=== PATIENT | female | born 1950 | race Caucasian/White ===

== ENCOUNTER 2019-12-10 17:21 | Inpatient (IN) | payer MEDICARE, BC ==
[~2019-12-10] VITALS: Ht 162.6 cm; Wt 68.0 kg
--- NOTE | 2019-12-10 17:40 | NUR ---
BIB PD 69 YEAR OLD FEMALE, PATIENT WAS AT PMD OFFICE STATING "IM BETTER OFF ." PLACED ON 5150. +SI/-HI DENIES ANY PLAN. ALERT AND ORIENTED X3 BREATHING EVEN AND UNLABORED WITH NO DISTRESS NOTED. SKIN INTACT. ALL BELONGINGS TAKEN AND STOWED AWAY INTO LOCKER. SECURITY CHECK AND SEARCH WAS DONE. WAITING TO BE SEEN BY .
[2019-12-10] MEDS ORDERED: SERT50TA12 PO (17:57)
[2019-12-10] MEDS ORDERED: GABA-534 PO (17:57)
[2019-12-10 18:09] LABS: BASOPHILS # (AUTO) 0.1 /CMM (0.0-0.2); BASOPHILS % (AUTO) 1.2 % (0.0-2.0); EOSINOPHILS % (AUTO) 0.7 % (0.0-6.0); HEMATOCRIT 40 % (33-45); HEMOGLOBIN 13.8 g/dL (11.5-14.8); LYMPHOCYTES # (AUTO) 2.7 /CMM (0.8-4.8); LYMPHOCYTES % (AUTO) 27.9 % (20.0-44.0); MEAN CORPUSCULAR HGB CONC 34 g/dl (31.0-36.0); MEAN CORPUSCULAR VOLUME 100 fL (82-100); MONOCYTES # (AUTO) 0.6 /CMM (0.1-1.30); MONOCYTES % (AUTO) 6.1 % (2.0-12.0); NEUTROPHILS # (AUTO) 6.3 /CMM (1.8-8.9); NEUTROPHILS % (AUTO) 64.1 % (43.0-81.0); PLATELET COUNT (AUTO) 338 /CMM (150-450); RED BLOOD CELL COUNT(AUTO) 4.03 MIL/uL (4.0-5.2); WHITE BLOOD COUNT (AUTO) 9.8 K/uL (4.3-11.0)
[2019-12-10 18:18] LABS: CALCIUM, SERUM 8.9 mg/dL (8.5-10.1); CARBON DIOXIDE 26 mmol/L (21-32); CHLORIDE 94 mmol/L (98-107); CREATININE 0.7 mg/dL (0.6-1.3); GLUCOSE 105 mg/dL (74-106); SODIUM SERUM 129 mmol/L (136-145); UREA NITROGEN, BLOOD 22 mg/dL (7-18)
[2019-12-10] MEDS ORDERED: LORAZEPAM 1 MG TABLET ONE (18:24)
[2019-12-10] MEDS ORDERED: LORAZEPAM 1 MG TABLET PO ONE (18:30)
[2019-12-10 18:32] LABS: ALANINE AMINOTRANSFERASE 148 U/L (12-78); ALBUMIN 3.4 g/dL (3.4-5.0); ALCOHOL, BLOOD < 3 mg/dL (0-0); ALKALINE PHOSPHATASE 112 U/L (46-116); ASPARTATE AMINOTRANSFERASE 88 U/L (15-37); BILIRUBIN,DIRECT 0.2 mg/dL (0.0-0.2); BILIRUBIN,TOTAL 0.4 mg/dL (0.2-1.0); TOTAL PROTEIN, SERUM 6.7 g/dL (6.4-8.2)
[2019-12-10 18:33] LABS: ACETAMINOPHEN < 2 ug/ml (10-30); SALICYLATE < 2.8 mg/dL (2.8-20.0)
--- NOTE | 2019-12-10 18:51 | NUR ---
URINE COLLECTED SENT TO LAB
--- NOTE | 2019-12-10 18:51 | NUR ---
REPORT GIVEN TO KARLI IN [facility]
[2019-12-10 18:55] LABS: APPEARANCE,URINE Slightly Cloudy (CLEAR); BILIRUBIN,URINE Negative (NEGATIVE); BLOOD, URINE Negative Ery/uL (NEGATIVE); COLOR,URINE Yellow (YELLOW); KETONES,URINE Trace (NEGATIVE); LEUKOCYTE ESTERASE ,URINE Small (NEGATIVE); NITRITE, URINE Negative (NEGATIVE); PH,URINE 7.5 (5.0-8.0); PROTEIN,URINE Negative (NEGATIVE); UGLUCOSE Negative (NEGATIVE)
[2019-12-10 19:26] LABS: BACTERIA,URINE Few /HPF (None Seen); RBC,URINE 0-2 /HPF (0-2); SQUAMOUS EPITHELIAL CELL,UR Few /HPF (None Seen)
[2019-12-10 20:00] VITALS: BP 118/73
--- NOTE | 2019-12-10 20:00 | NUR ---
GPS ADMISSION NOTES: ADMITTED THIS 69-Y/O, FEMALE, FROM [facility], ARRIVED ON THIS UNIT AT 1999 VIA WHEELCHAIR ACCOMPANIED WITH STAFF AND SPOUSE. PATIENT ADMITTED ON 5150 HOLD FOR DTS. PER HOLD PT. ADMITTED FOR SUICIDAL IDEATION. PT. HAS SEVERAL STRESSORS, MENTAL PROBLEMS, INCREASING DRINKING PROBLEM, RECURRENT AND INCREASING ANXIETY AND DEPRESSION. PT. REPORTED THAT "SHE IS GETTING WORSE' AND KEPT REPEATING THAT "SHE WOULD BE BETTER OFF ." UPON FACE TO FACE ASSESSMENT, PATIENT IS A&O X3 FEELING DEPRESSED, ANXIOUS, COOPERATIVE WITH CARE. IN NO APPARENT DISTRESS NOTED. DENIES SI/HI/AVH AT THIS TIME. SKIN ASSESSMENT DONE. PT'S RIGHTS HANDBOOK & PT. GUIDELINES BOOK GIVEN & DISCUSSED TO THE PATIENT. PT BELONGINGS WERE INVENTORIED & CHECKED FOR CONTRABAND. PT. IS UNDER THE PSYCHIATRIC CARE OF DR. LOUIS, ORDERS OBTAINED & UNDER THE MEDICAL CARE OF ESTEFANY RITTER. MED RECON DONE. PATIENT EDUCATED TO THE USE OF CALL SKAGGS. BED ALARM ON. ENVIRONMENTAL SAFETY CHECK DONE. BED LOCKED & IN LOW POSITION. WILL CONTINUE TO MONITOR Q15 MINUTES FOR SAFETY & BEHAVIOR.
--- NOTE | 2019-12-10 20:20 | NUR ---
PT TRANSFFERED UPSTAIR AND STABLE
[2019-12-10] MEDS ORDERED: MAGNESIUM HYDROXIDE 30 ML UDC PO PRN (21:00)
[2019-12-10] MEDS ORDERED: ACETAMINOPHEN 325 MG TABLET PO PRN (21:00)
[2019-12-10] MEDS ORDERED: MAG HYDROX/AL HYDROX/SIMETH 30 ML UDC PO PRN (21:00)
[2019-12-10] MEDS: LORAZEPAM 0.5 MG TABLET PO PRN (21:27)
--- NOTE | 2019-12-10 21:27 | NUR ---
GPS RN NOTE: ANXIETY PT. C/O OF FEELING ANXIOUS AND REQUESTED ANTI-ANXIETY PILL. ADMINISTERED ATIVAN 0.5 MG PO ORDERED. WILL CONTINUE TO MONITOR FOR PT. SAFETY.
[2019-12-10] MEDS ORDERED: BLOOD SUGAR DIAGNOSTIC 1 EACH STRIP IN ONE (22:00)
[2019-12-10] MEDS: TEMAZEPAM 7.5 MG CAPSULE PO PRN (23:08)
--- NOTE | 2019-12-10 23:08 | NUR ---
GPS RN NOTES: INSOMNIA PT. C/O INABILITY TO SLEEP AND REQUESTED FOR SLEEPING PILL. ADMINISTERED RESTORIL 7.5 MG PO ORDERED WILL CONTINUE TO MONITOR FOR PT'S SAFETY.
--- NOTE | 2019-12-10 23:11 | NUR ---
GPS RN NOTE, PATIENT HAS A COMPLAINT OF CHRONIC RIGHT KNEE PAIN AT A 5 OUT 10 ON THE PAIN SCALE AND REPORTS SHE TAKES IBUPROFEN FOR THIS PAIN. INFORMED ONIEL RITTER DNP WHO IS ROUNDING ON FLOOR. ONIEL RITTER DNP ORDERED TO GIVE IBUPROFEN 400 MG PO Q6HR PRN, ALL ORDERS NOTED AND CARRIED OUT. WILL CONTINUE TO MONITOR THIS PATIENT WITH THE HELP OF STAFF.
[2019-12-11] MEDS: LORAZEPAM 0.5 MG TABLET PO PRN (08:19)
[2019-12-11] MEDS: NITROFURANTOIN/NITROFURAN MAC 100 MG CAPSULE PO SCH ×2 (08:21→21:08)
[2019-12-11] MEDS: GABAPENTIN 300 MG CAPSULE PO SCH ×3 (08:21→16:40)
--- NOTE | 2019-12-11 08:22 | NUR ---
GPS/RN-NOTES PATIENT STATED" I'M VERY ANXIOUS CAN YOU GIVE ME MEDICATION TO RELAX ME". ATIVAN 0.5MG P.O GIVEN PRN ORDER. WILL CONT. MONITORING FOR SAFETY AND BEHAVIOR.
[2019-12-11 09:11] VITALS: BP 162/80
--- NOTE | 2019-12-11 09:20 | NUR ---
GPS/RN-NOTES PATIENT LAYING IN BED AWAKE,ALERT ,CALM NO ACUTE DISTRESS NOTED.
--- NOTE | 2019-12-11 10:39 | NUR ---
Family Contact: ELAYNE called the pts , Mir ([phone]), and informed him that the pt is in the hospital and explained the situation of the hold. SW then proceeded to inform him of the average length of stay for the pts in this geriatric psych unit. SW discussed the pts initial treatment plan of participating in groups and taking her medications and discussed the initial discharge plan of the pt returning to her home.
--- NOTE | 2019-12-11 11:59 | NUR ---
Initial Discharge Plan: Pt currently resides in her home with her located at [address] [place] [address]; ([phone]). Per pt she will return to her home. SW will work with the pt and the MD regarding appropriate discharge planning. SW will form a safe and proper discharge.
[2019-12-11 16:11] VITALS: BP 125/70
[2019-12-11 20:00] VITALS: BP 130/69
[2019-12-11] MEDS: SERTRALINE HCL 50 MG TABLET PO SCH (21:09)
[2019-12-11] MEDS: TEMAZEPAM 7.5 MG CAPSULE PO PRN (23:41)
--- NOTE | 2019-12-11 23:42 | NUR ---
GPS RN NOTE: INSOMNIA PT. C/O INABILITY TO SLEEP AND REQUESTED FOR SLEEPING PILL. ADMINISTERED RESTORIL 7.5 MG PO ORDERED. WILL CONTINUE TO MONITOR FOR PT'S SAFETY.
[2019-12-12] MEDS: LORAZEPAM 0.5 MG TABLET PO PRN ×3 (04:01→16:03)
--- NOTE | 2019-12-12 04:03 | NUR ---
GPS RN NOTE: ANXIETY PT. C/O FEELING ANXIOUS AND REQUESTED FOR ATIVAN. PRN ATIVAN 0.5MG PO GIVEN. WILL CONTINUE TO MONITOR FOR PT'S SAFETY.
[2019-12-12 07:18] LABS: BASOPHILS % (AUTO) 0.5 % (0.0-2.0); EOSINOPHILS % (AUTO) 1.5 % (0.0-6.0); HEMATOCRIT 41 % (33-45); HEMOGLOBIN 13.5 g/dL (11.5-14.8); LYMPHOCYTES # (AUTO) 1.7 /CMM (0.8-4.8); LYMPHOCYTES % (AUTO) 24.9 % (20.0-44.0); MEAN CORPUSCULAR HGB CONC 33 g/dl (31.0-36.0); MEAN CORPUSCULAR VOLUME 101 fL (82-100); MONOCYTES # (AUTO) 0.5 /CMM (0.1-1.30); NEUTROPHILS # (AUTO) 4.4 /CMM (1.8-8.9); NEUTROPHILS % (AUTO) 65.1 % (43.0-81.0); PLATELET COUNT (AUTO) 288 /CMM (150-450); RED BLOOD CELL COUNT(AUTO) 4.03 MIL/uL (4.0-5.2); WHITE BLOOD COUNT (AUTO) 6.7 K/uL (4.3-11.0)
[2019-12-12 07:31] LABS: CREATININE 0.6 mg/dL (0.6-1.3); POTASSIUM 3.6 mmol/L (3.5-5.1)
[2019-12-12 08:00] VITALS: BP 144/83
[2019-12-12] MEDS: NITROFURANTOIN/NITROFURAN MAC 100 MG CAPSULE PO SCH ×2 (08:26→21:02)
[2019-12-12] MEDS: GABAPENTIN 300 MG CAPSULE PO SCH ×3 (08:26→16:03)
--- NOTE | 2019-12-12 10:04 | NUR ---
GPS RN NOTE: ANXIETY PT. C/O FEELING ANXIOUS AND REQUESTED FOR ATIVAN. PRN ATIVAN 0.5MG PO GIVEN. WILL CONTINUE TO MONITOR FOR PT'S SAFETY.
[2019-12-12 16:00] VITALS: BP 148/82
--- NOTE | 2019-12-12 16:19 | NUR ---
GPS RN NOTE: ANXIETY PT. C/O FEELING ANXIOUS AND REQUESTED FOR ATIVAN. PRN ATIVAN 0.5MG PO GIVEN. WILL CONTINUE TO MONITOR FOR PT'S SAFETY.
--- NOTE | 2019-12-12 19:30 | NUR ---
GPS RN NOTE, RECEIVED PATIENT AWAKE AND IN BED, NO S/S OR COMPLAINTS OF PAIN AT THIS TIME. PATIENT IS DISPLAYING NO S/S OF APPARENT DISTRESS AT THIS TIME. PATIENT BREATHING IS UNLABORED WITH EQUAL RISE AND FALL OF THE CHEST. PATIENT IS ALERT AND ORIENTED X 3 ON ROOM AIR WITH A SPO2 97%. PATIENT IS COMPLIANT WITH MEDICATIONS, DEPRESSED, ANXIOUS AT TIMES, AND COOPERATIVE. PATIENT DENIES SUICIDAL AND HOMICIDAL IDEATIONS AT THIS TIME. PATIENT ASSISTED WITH TURNING AND REPOSITIONING Q2HR AND PRN FOR COMFORT AND CIRCULATION. PATIENT HAS NO NEEDS AT THIS TIME. PATIENT EDUCATED ON THE USE OF THE CALL SKAGGS. PATIENT BED SIDE RAILS UP X 2 FOR SAFETY. PATIENT BED IS LOCKED, LOW, WITH BED ALARM ON. WILL CONTINUE TO MONITOR THIS PATIENT Q15 MINUTES WITH THE HELP OF STAFF TO MAINTAIN SAFETY.
[2019-12-12 20:58] VITALS: BP 125/66
[2019-12-12] MEDS: SERTRALINE HCL 50 MG TABLET PO SCH (21:02)
[2019-12-12] MEDS: TEMAZEPAM 7.5 MG CAPSULE PO PRN (21:54)
--- NOTE | 2019-12-12 21:54 | NUR ---
GPS RN NOTE: INSOMNIA PT. C/O OF INSOMNIA AND REQUESTED FOR SLEEPING PILL. ADMINISTERED RESTORIL 7.5 MG PO PRN. WILL CONTINUE TO MONITOR FOR SAFETY.
[2019-12-13] MEDS: LORAZEPAM 0.5 MG TABLET PO PRN ×2 (07:54→15:42)
[2019-12-13 08:00] VITALS: BP 144/76
[2019-12-13] MEDS: NITROFURANTOIN/NITROFURAN MAC 100 MG CAPSULE PO SCH ×2 (08:29→21:01)
[2019-12-13] MEDS: GABAPENTIN 300 MG CAPSULE PO SCH ×3 (08:29→16:30)
[2019-12-13 16:00] VITALS: BP 134/80
--- NOTE | 2019-12-13 19:40 | NUR ---
GPS RN OPENING NOTES RECEIVED PATIENT FROM MORNING SHIFT ALERT AND ORIENTED X 3. VERBALLY RESPONSIVE AND ABLE TO FOLLOW DIRECTIONS. VERBALIZED THAT SHE'S FEELING A LOT BETTER AFTER TAKING ATIVAN. BREATHING REGULAR AND UNLABORED ON ROOM AIR. NO COMPLAINTS OF PAIN/DISCOMFORT REPORTED AT THIS TIME. BED LOW AND LOCKED ON LOW FOWLERS POSITION. WILL CONTINUE TO MONITOR FOR SAFETY AND BEHAVIOR.
[2019-12-13 20:14] VITALS: BP 123/69
[2019-12-13] MEDS: SERTRALINE HCL 50 MG TABLET PO SCH (21:01)
[2019-12-13] MEDS: SIMVASTATIN 10 MG TABLET PO SCH (21:18)
[2019-12-13 22:00] VITALS: BP 123/69
[2019-12-13] MEDS: TEMAZEPAM 7.5 MG CAPSULE PO PRN (22:29)
--- NOTE | 2019-12-13 22:30 | NUR ---
GPS RN NOTES COMPLAINED OF INABILITY TO STAY ASLEEP, RESTORIL 7.5MG GIVEN BY MOUTH. NON-PHARMACOLOGICAL INTERVENTIONS PROVIDED. WILL CONTINUE TO MONITOR.
[2019-12-14] MEDS: LORAZEPAM 0.5 MG TABLET PO PRN ×2 (06:40→13:40)
[2019-12-14 08:00] VITALS: BP 142/73
[2019-12-14] MEDS: NITROFURANTOIN/NITROFURAN MAC 100 MG CAPSULE PO SCH ×2 (08:10→21:03)
[2019-12-14] MEDS: GABAPENTIN 300 MG CAPSULE PO SCH ×3 (08:10→17:34)
--- NOTE | 2019-12-14 09:00 | NUR ---
RN NOTE- PT ALERT ORIENTED TO PERSON PLACE. CONFUSED CALM DIRECTABLE. PT PO INTAKE GOOD, INTERACTIVE, MED COMPLIANT. DENYING SI HI AH VH
--- NOTE | 2019-12-14 12:30 | NUR ---
Substance Abuse Intervention: SW conducted a substance abuse intervention with the pt due to her alcohol abuse.
--- NOTE | 2019-12-14 13:40 | NUR ---
RN NOTE-ANXIETY/ PT C/O ANXIOUSNESS. ATIVAN 0.5 MG GIVEN
--- NOTE | 2019-12-14 14:55 | NUR ---
RN NOTE- RX EFFECTIVE. PT CALM
[2019-12-14 16:00] VITALS: BP 127/63
--- NOTE | 2019-12-14 16:11 | NUR ---
Group Note: SW encouraged pt to attend group therapy on 12/14/19 at 2pm discussing discharge planning. Pt stated that she preferred to stay in her room because she did not want to discuss her discharge plan with other patients. SW stated that the plan is for her to return to her home with her in a couple of days.
[2019-12-14 20:00] VITALS: BP 143/79
[2019-12-14 20:07] VITALS: BP 143/79
[2019-12-14] MEDS: SERTRALINE HCL 50 MG TABLET PO SCH (21:03)
[2019-12-14] MEDS: SIMVASTATIN 10 MG TABLET PO SCH (21:03)
[2019-12-14] MEDS: TEMAZEPAM 7.5 MG CAPSULE PO PRN (22:07)
[2019-12-15] MEDS: LORAZEPAM 0.5 MG TABLET PO PRN ×2 (07:30→14:16)
--- NOTE | 2019-12-15 07:30 | NUR ---
RN NOTE- ANXIETY/ PT W STATED ANXIETY AND RESTLESSNESS. REQUESTS PRN. ATIVAN 0.5 MG GIVEN.
[2019-12-15 08:00] VITALS: BP 122/78
--- NOTE | 2019-12-15 08:30 | NUR ---
RN NOTE- RX EFFECTIVE. PT CALMER
[2019-12-15] MEDS: NITROFURANTOIN/NITROFURAN MAC 100 MG CAPSULE PO SCH ×2 (09:00→21:07)
--- NOTE | 2019-12-15 09:00 | NUR ---
RN NOTE- ANXIOUS AT TIMES. PT ALERT ORIENTED TO PERSON PLACE. CONFUSED CALM DIRECTABLE. PT PO INTAKE GOOD, INTERACTIVE, MED COMPLIANT. DENYING SI HI AH VH
[2019-12-15] MEDS: GABAPENTIN 300 MG CAPSULE PO SCH ×3 (09:04→17:12)
--- NOTE | 2019-12-15 14:16 | NUR ---
RN NOTE:PATIENT C/O ANXIETY MEDICATED WITH ATIVAN 0.5MG WILL CONTINUE TO MONITOR .
[2019-12-15 16:00] VITALS: BP 144/76
--- NOTE | 2019-12-15 16:05 | NUR ---
Group Note: SW encouraged pt to attend group therapy on 12/15/19 at 2pm discussing impaired reality testing. Pt stated that she did not want to participate in group therapy and stated that she wants to be discharged back to her home with her . SW stated that part of her treatment plan is to participate in groups but the pt stated that she preferred to remain in her room. Pt stated that she has been feeling better and pts insight appears to be fair
--- NOTE | 2019-12-15 18:42 | NUR ---
RN NOTE- APPLE TO CONTINUE EYE GTTS THAT PT WILL BRING IN TONIGHT. KNOWS TO GIVE TO GAME BREEDING FARM MANAGER FOR PROPER ORDER VIA APPLE. ORDER TO CONTINUE GIVEN. WILL AWAIT RX DELIVERY AND PASS ON TO NOC SHIFT.
[2019-12-15 20:41] VITALS: BP 110/62
[2019-12-15] MEDS: SIMVASTATIN 10 MG TABLET PO SCH (21:07)
[2019-12-15] MEDS ORDERED: SERTRALINE HCL 50 MG TABLET PO SCH (22:00)
[2019-12-15] MEDS: TEMAZEPAM 7.5 MG CAPSULE PO PRN (22:06)
[2019-12-16] MEDS: LORAZEPAM 0.5 MG TABLET PO PRN (07:19)
--- NOTE | 2019-12-16 07:20 | NUR ---
RN NOTE- ANXIETY/ PT W RESTLESSNESS. ATIVAN 0.5 MG GIVEN.
[2019-12-16 08:00] VITALS: BP 142/80
[2019-12-16] MEDS: GABAPENTIN 300 MG CAPSULE PO SCH ×3 (08:37→17:07)
[2019-12-16] MEDS: NITROFURANTOIN/NITROFURAN MAC 100 MG CAPSULE PO SCH (08:42)
--- NOTE | 2019-12-16 09:00 | NUR ---
RN NOTE- PT ANXIOUS AT START OF SHIFT. OOB IN HALLWAY, STEADY AMBULATION. REQUESTING PRN RX FOR RESTLESSNESS. STATED THAT ATIVAN 0.5 MG DOSE "ONLY HELPED A LITTLE YESTERDAY" PT CONTINUES TO FEEL ANXIOUS. WILL NOTIFY MD AND REQUEST RX DOSE INCREASE OR CHANGE. PT ALERT ORIENTED, CALM W GOOD PO INTAKE. DENYING ALL.
--- NOTE | 2019-12-16 10:19 | NUR ---
Individual Intervention with the Pt: SW met with the pt and informed her that the pt will be having a hearing today that will determine whether or not she will remain in the hospital on a hold.
--- NOTE | 2019-12-16 10:23 | NUR ---
Probable Cause (PC) Hearing: ELAYNE called the pts , Mir ([phone]), and informed him about the hearing and what it entails as well as what all the possible results of the hearing mean.
--- NOTE | 2019-12-16 11:37 | NUR ---
RN NOTE- DR GARZA COVERING FOR DR LOUIS ORDERED ATIVAN 1 MG PO Q6H PRN. D/C PREVIOUS ATIVAN 0.5 MG Q6H PRN ORDER. COMPLIED.
[2019-12-16] MEDS: LORAZEPAM 1 MG TABLET PO PRN (11:41)
--- NOTE | 2019-12-16 11:42 | NUR ---
RN NOTE- ANXIETY/ PT W CONTINUED RESTLESSNESS AND ANXIOUSNESS. ATIVAN 1 MG GIVEN/ MONITORING.
--- NOTE | 2019-12-16 12:50 | NUR ---
RN NOTE- ATIVAN RX EFFECTIVE. PT CALMER. "I FEEL MUCH BETTER."
[2019-12-16 16:00] VITALS: BP 128/73
--- NOTE | 2019-12-16 16:21 | NUR ---
Group Note: Pt was present in group on 12/16/19 at 2pm discussing the topic of decision making. S: "I am going to stop drinking alcohol. I went to my MD and stated my anxiety symptoms and it takes away your ability to complete tasks so I am deciding to quit drinking." O: Pt appeared to be in a euthymic mood and presented with a calm affect. Pt was more alert and coherent and was able to have a meaningful conversation. Pt maintained appropriate eye contact and was respectful of others. A: Pt understood the impact of her actions when it came to alcohol and stated that she is going to give it up so that she can live the rest of her life in a better state with her family and so that she can do something with her life that will make a difference. P: SW will continue to encourage medication compliance and encourage group milieu.
[2019-12-16] MEDS ORDERED: VIT1CAPS9 PO (16:23)
[2019-12-16] MEDS ORDERED: CARB15DR2 EACHEYE (16:23)
[2019-12-16] MEDS: [UNRECOGNIZED DRUG - OTHER] OP SCH (17:00)
[2019-12-16] MEDS: PRESERVISION PO SCH (17:00)
[2019-12-16 20:00] VITALS: BP 138/69
[2019-12-16] MEDS: SIMVASTATIN 10 MG TABLET PO SCH (21:21)
[2019-12-16] MEDS: SERTRALINE HCL 50 MG TABLET PO SCH (21:21)
[2019-12-17] MEDS: TEMAZEPAM 7.5 MG CAPSULE PO PRN (02:18)
[2019-12-17] MEDS: LORAZEPAM 1 MG TABLET PO PRN ×2 (07:19→13:41)
--- NOTE | 2019-12-17 07:20 | NUR ---
GPS RN NOTES PATIENT C/O OF FEELING ANXIOUS, GIVEN ATIVAN ORDERED, WILL CONTINUE TO MONITOR.
[2019-12-17 08:00] VITALS: BP 142/74
[2019-12-17] MEDS: GABAPENTIN 300 MG CAPSULE PO SCH ×3 (08:30→17:06)
[2019-12-17] MEDS: [UNRECOGNIZED DRUG - OTHER] OP SCH (10:12)
[2019-12-17] MEDS: PRESERVISION PO SCH (10:12)
--- NOTE | 2019-12-17 13:41 | NUR ---
RN-CO: ATIVAN 1 MG PO GIVEN MODERATE ANXIETY.
[2019-12-17 16:00] VITALS: BP 110/68
[2019-12-17] MEDS: IBUPROFEN 400 MG TABLET PO PRN (18:30)
[2019-12-17 20:00] VITALS: BP 136/69
[2019-12-17] MEDS: SIMVASTATIN 10 MG TABLET PO SCH (21:25)
[2019-12-17] MEDS: SERTRALINE HCL 50 MG TABLET PO SCH (21:28)
[2019-12-18] MEDS: TEMAZEPAM 7.5 MG CAPSULE PO PRN (00:01)
[2019-12-18] MEDS: LORAZEPAM 1 MG TABLET PO PRN ×2 (07:54→13:58)
[2019-12-18 08:00] VITALS: BP 150/76
[2019-12-18] MEDS: IBUPROFEN 400 MG TABLET PO PRN ×2 (08:13→18:17)
[2019-12-18] MEDS: GABAPENTIN 300 MG CAPSULE PO SCH ×3 (08:13→16:53)
[2019-12-18] MEDS: [UNRECOGNIZED DRUG - OTHER] OP SCH (08:55)
[2019-12-18] MEDS: PRESERVISION PO SCH (08:55)
--- NOTE | 2019-12-18 09:59 | NUR ---
Dr. Wing as the medical claims processor of the unit gave an order for denial of right to do room search to look for the missing shower head with the hose. Staffs made a thorough search and the thing that we are looking is not in the room.
--- NOTE | 2019-12-18 13:31 | NUR ---
DR. GARZA GAVE A ORDER TO D/C HOLD AND D/C HOME AND TO FOLLOW UP WITH PSYCH AND MEDICAL DOCTORS. DR. GARZA GAVE A PRESCRIPTION FOR 1 MONTH SUPPLY.
--- NOTE | 2019-12-18 14:00 | NUR ---
NURSING NOTE: PT STATING "IM REALLY ANXIOUS, I NEED SOMETHING TO HELP ME CALM DOWN" REQUESTING ATIVAN. ADMINISTERED ATIVAN 1 MG PO PER MD ORDER. WILL CONTINUE TO MONITOR.
--- NOTE | 2019-12-18 15:16 | NUR ---
Discharge Note: Pt was [place] [address] [place] [address]; ([phone]). Pts , Mir ([phone]), picked her up at 5:30pm. Pts pharmacy is [facility] located at [address] [place] [address]; and the prescriptions were faxed. Upon discharge, pt appeared to be in a euthymic mood and presented with a calm affect. Pt appeared to be alert and oriented x4 (time, place, self and situation). Pt denied both suicidal and homicidal ideation as well as auditory and visual hallucinations. Pt was provided with substance abuse referrals as well as psychiatrist referrals. Pt was referred to be under the care of his psychiatrist, Dr[place], [place] [address] [place] [address]; ; and a fax of records was sent to: . Pt will continue to be under the care of her import/export analyst, Dr. Burroughs, located at [facility] [address] [address]; .
[2019-12-18 16:04] VITALS: BP 133/82
--- NOTE | 2019-12-18 18:19 | NUR ---
NURSING NOTE: PT C/O RIGHT LOWER LEG PAIN, 7/10 PAIN, REQUESTING MOTRIN. ADMINISTERED MOTRIN 400MG PO PER MD ORDER. WILL CONTINUE TO MONITOR.
--- NOTE | 2019-12-18 19:25 | NUR ---
GPS COMMUNITY REINVESTMENT ACT OFFICER NOTES PATIENT WAS DISCHARGED HOME AT [address] (HOME [place]DRESS: [place] [address]). , PAZ, WAS PRESENT TO TAKE PATIENT HOME. PATIENT IN STABLE CONDITION. A/O X4. NO S/S OF ANY DISTRESS NOTED. PATIENT APPEARED CALM AND COOPERATIVE WITH DISCHARGE INSTRUCTIONS. PATIENT DENIED SI/HI/. PER DAY SHIFT NURSE, PASTORA, DISCHARGE INSTRUCTIONS WERE COMPLETED AND GIVEN TO PATIENT. ALL BELONGINGS RETURNED TO PATIENT. PATIENT'S PHARMACY IS [facility] (ADDRESS: [place] [address]); PHARMACY CONTACT AND PRESCRIPTIONS FAXED. PATIENT IS REFERRED TO PSYCHIATRIST DR. LOUIS AND WILL CONTINUE TO BE UNDER THE CARE OF DR. JOEL. PATIENT AND WERE ESCORTED TO FRONT LOBBY WITH [facility].
== END 2019-12-18 19:20 | disposition home or self-care (01) | DRG 885 ==
LOC: ER 17:26 → GPS 19:41
PROVIDERS: ADMIT Psychiatry & Neurology Psychiatry; ATTEND Hospitalist
DX: F33.2 Major depressive disorder, recurrent severe without psychotic features (principal); E87.1 Hypo-osmolality and hyponatremia; N39.0 Urinary tract infection, site not specified; R45.851 Suicidal ideations; E86.0 Dehydration; E78.5 Hyperlipidemia, unspecified; F10.20 Alcohol dependence, uncomplicated; F12.90 Cannabis use, unspecified, uncomplicated; F41.9 Anxiety disorder, unspecified; Z79.899 Other long term (current) drug therapy; R74.0 Nonspecific elevation of levels of transaminase and lactic acid dehydrogenase [LDH]; Y90.0 Blood alcohol level of less than 20 mg/100 ml
CPT/HCPCS: 36415; 80048-TC; 80061-TC; 80076-TC; 80305; 81000-TC; 82962-TC; 85025-TC; 87081-TC; 87086-TC; 97116-TC; 97530-TC; G0480